=== PATIENT | male | born 1965 | race Caucasian/White ===

== ENCOUNTER 2017-10-19 04:59 | Emergency (ER) | payer MEDICARE ==
[2017-10-19 05:57] LABS: ABS Basophils 0 10^3/ul (0-0.2); ABS Eosinophils 0.1 10^3/ul (0-0.6); ABS Lymphocytes 1.3 10^3/ul (1.0-4.8); ABS Monocytes 0.4 10^3/ul (0-0.8); ABS Neutrophils 3.8 10^3/ul (1.5-7.7); ABS Nucleated RBC 0 10^3/ul; Eosinophil % 1.6 % (0-6); Hematocrit 43 % (42-52); Hemoglobin 14.8 g/dl (14.0-18.0); Lymphocyte % 22.5 % (25-47); Mean Corpuscular HGB Conc 34 g/dl (31-36); Mean Corpuscular Hemoglobin 32 pg (27-31); Mean Corpuscular Volume 92 fL (80-94); Mean Platelet Volume 8.2 um3 (7.4-10.4); Nucleated Red Blood Cells % 0; Platelet Count 170 10^3/ul (150-450); Red Blood Count 4.69 10^6/ul (4.00-5.40); Red Cell Distribution Width 14 % (10.5-15); White Blood Count 5.6 10^3/ul (3.5-10.8)
[2017-10-19 06:07] LABS: INR 1.05 (0.77-1.02)
[2017-10-19 06:16] LABS: EGFR Non-African American 68.3 (>60)
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
--- NOTE | 2017-10-19 07:51 | RAD ---
INDICATION: Chest pain COMPARISON: November 13, 2007 TECHNIQUE: An AP portable view obtained at 0515 hours is submitted. FINDINGS: Bones/Soft Tissues: There are no acute bony findings. Cardiomediastinal: The cardiac silhouette is enlarged. There is left-sided cardiac pacemaker/defibrillator. There is an additional lead projecting over the left heart.. Lungs: There are no infiltrates. Pleura: There are no pleural effusions. Other: None IMPRESSION: POSTOPERATIVE CHANGE. ENLARGED CARDIAC SILHOUETTE. LUNGS CLEAR.
[2017-10-19 09:47] VITALS: BP 122/88
--- NOTE | 2017-10-19 11:03 | ED ---
Kenia Fenton Jacob, scribed for Jermaine Reese MD on 10/19/17 at 0838 . Progress - Progress Note Progress Note: Pt was signed out by Dr. Ybarra. Re-Evaluation - Re-Evaluation 0830 Re-Evaluation Time: 08:30 Comment: Pt is feeling fine overall. First Eval Re-Evaluation Time: 09:30 Comment: Pt was instructed to resume taking eliquis until appointment w/ Dr. Quintero. Pt stated he has hx of atrial clot. Course/Dx - Course Course Of Treatment: Pt was signed out by Dr. Ybarra. At 0832, Dr. Lujan was consulted who recommended a Dr. Quintero consultation. At 0839, Dr. Quintero recommended no medication changes at this time and he will set-up a follow-up visit for device programming. He also stated Pt should be on Eliquis, though it does not appear on his home medication list. At 0900, Dr. Bustillos, the pt's dixonac operator reviewed the interrogation and stated that it was indeed a- fib, not v-fib. He agress w/ plan for follow-up w/ Dr. Quintero.Pt was instructed to resume taking eliquis until appointment w/ Dr. Quintero. Pt stated he has hx of atrial clot. In light of his recent afib episode, anti-coagulation is important. Pt was instructed to call Dr. Quintero office in the afternoon for appointment if he has not yet heard back from the office. It was also noted the pt is supposed to be taking 5 mg twice a day of eliquis. Pt was discharged to home w/ diagnosis of rapid afib and AICD discharge. - Diagnoses Provider Diagnoses: Rapid atrial fibrillation, AICD discharge - Provider Notifications Discussed Care Of Patient With: Yung Lujan Time Discussed With Above Provider: 08:32 Instructed by Provider To: Other - Recommended Dr. Quintero consultation. At 0839, Dr. Quintero recommended no medication changes at this time and he will set-up a follow-up visit for device programming. He also stated Pt should be on Eliquis, though it does not appear on his home medication list. At 0900, Dr. Bustillos, the pt's dixonac operator reviewed the interrogation and stated that it was indeed a-fib, not v-fib. He agress w/ plan for follow-up w/ Dr. Quintero. - Critical Care Time Critical Care Time: 30-74 min - CCT is EXCLUSIVE of separately billable procedures. Discharge - Sign-Out/Discharge Documenting (check all that apply): Discharge/Admit/Transfer - discharge, Receiving Sign-Out Receiving patient FROM: Ayden Tate - Discharge Plan Condition: Stable Disposition: HOME Patient Education Materials: A-fib (Atrial Fibrillation) (ED) Referrals: Francis Murillo MD [Primary Care Provider] - 2 Days Additional Instructions: Resume taking eliquis until appointment w/ Dr. Quintero. Call Dr. Quintero office in the afternoon for appointment if you have not heard from the office. Take 5 mg twice a day of eliquis. Return to ED for any changing or worsening symptoms. The documentation as recorded by the Kenia gant Jacob accurately reflects the service I personally performed and the decisions made by me, Jermaine Reese MD.
== END 2017-10-19 09:50 | disposition home or self-care (01) ==
LOC: ED 04:59
DX: I42.9 Cardiomyopathy, unspecified (principal); I51.7 Cardiomegaly; I44.0 Atrioventricular block, first degree; I44.7 Left bundle-branch block, unspecified; Z95.810 Presence of automatic (implantable) cardiac defibrillator
CPT/HCPCS: 36415; 71045; 80053; 83605; 83880; 84484; 85025; 85610; 85730; 93005; 99284

== ENCOUNTER 2019-03-16 16:16 | Emergency (ER) | payer MEDICARE ==
--- OUTSIDE RECORDS SUMMARY | 2019-03-16 16:42 | XMS REPORT | Continuity of Care Document ---
:1965 External Reference #:[id number] Author Name Jonh Quintero M.D. (transmitted by agent of provider Prudence Denson) Address [address] [place] [address] Care Team Providers Name Role Phone Francis Murillo MD - Family Care Team Information Clerical Support Specialist [phone] Medicine Problems Active Problems Provider Date Primary cardiomyopathy Jonh Quintero M.D. Onset: 07/08/2013 Paroxysmal ventricular tachycardia Jonh Quintero M.D. Onset: 07/08/2013 Social History Type Date Description Comments Sex Unknown ETOH Use Denies alcohol use Tobacco Use Start: Unknown Patient has never smoked Recreational Drug Use Denies Drug Use Smoking Status Reviewed: 02/19/19 Patient has never smoked Exercise Type/Frequency Exercises rarely hard to exercise during winter Allergies, Adverse Reactions, Alerts Active Allergies Reaction Severity Comments Date NKDA 06/26/2017 Inactive Allergies NKDA 07/08/2013 Heparin Moderate 03/28/2017 Medications Active Medications SIG Qnty Indications Ordering Provider Date Lisinopril 1 by mouth 90tabs I47.2 Jonh Quintero, 06/26/2017 10mg Tablets every day M.D. Carvedilol 1 1/2 tabs by 270tabs Valnetín Castelan, 04/09/2012 25mg Tablets mouth twice a DO FACC day Oxycodone HCL 1 tab q 6hrs Francis Murillo, 5mg prn MD Tablets Aspirin Childrens 1 tab po qd 30units Unknown 81mg Chewtabs Gabapentin 1 by mouth qHS 270caps Unknown 300mg Capsules Immunizations Description No Information Available Vital Signs Date Vital Result Comment 02/19/2019 10:14am Height 71 inches 5'11" Weight 274.00 lb with shoes Heart Rate 72 /min BP Systolic Sitting 112 mmHg Rue lg cuff BP Diastolic Sitting 72 mmHg Rue lg cuff BP Systolic Standing 118 mmHg Rue lg cuff BP Diastolic Standing 78 mmHg Rue lg cuff Respiratory Rate 15 /min BMI (Body Mass Index) 38.2 kg/m2 02/05/2019 8:02am Height 71 inches 5'11" Weight 277.00 lb with shoes Heart Rate 80 /min BP Systolic Sitting 128 mmHg Lue large cuff BP Diastolic Sitting 72 mmHg Lue large cuff BP Systolic Standing 126 mmHg Lue large cuff BP Diastolic Standing 68 mmHg Lue large cuff Respiratory Rate 13 /min BMI (Body Mass Index) 38.6 kg/m2 Ejection Fraction 30-35% ECHO 06/26/2018 Results Description No Information Available Procedures Date Code Description Status 02/19/2019 93615 EKG Tracing & Interpretation Completed 02/05/2019 56647 Interrogation Implant Cardiovasc Monitor System Incl Completed Analysis Int 02/05/2019 92242 Interrogation Implant Cardiovasc Monitor System Incl Completed Analysis Int 02/05/2019 54052 Icd Eval With Iterative Adjustmt Multiple Lead System Completed 02/05/2019 15159 Icd Eval With Iterative Adjustmt Multiple Lead System Completed Medical Devices Description No Information Available Encounters Type Date Location Provider Dx Diagnosis Office Visit 02/05/2019 [facility] Jonh Khan I47.2 Ventricular 8:15a Of Daryl Quintero M.D. tachycardia Z95.810 Presence of automatic (implantable) cardiac defibrillator I42.9 Cardiomyopathy, unspecified I48.0 Paroxysmal atrial fibrillation Assessments Date Code Description Provider 02/19/2019 I47.2 Ventricular tachycardia Jonh Quintero M.D. 02/19/2019 Z95.810 Presence of automatic (implantable) cardiac Jonh Quintero M.D. defibrillator 02/19/2019 I48.0 Paroxysmal atrial fibrillation Jonh Quintero M.D. 02/19/2019 I10 Essential (primary) hypertension Jonh Quintero M.D. 02/05/2019 I47.2 Ventricular tachycardia Jonh Quintero M.D. 02/05/2019 I47.2 Ventricular tachycardia Jonh Quintero M.D. 02/05/2019 I47.2 Ventricular tachycardia Ica Pacer Schedule 02/05/2019 Z95.810 Presence of automatic (implantable) cardiac Jonh Quintero M.D. defibrillator 02/05/2019 Z95.810 Presence of automatic (implantable) cardiac Jonh Quintero M.D. defibrillator 02/05/2019 Z95.810 Presence of automatic (implantable) cardiac Ica Pacer Schedule defibrillator 02/05/2019 I42.9 Cardiomyopathy, unspecified Jonh Quintero M.D. 02/05/2019 I42.9 Cardiomyopathy, unspecified Jonh Quintero M.D. 02/05/2019 I42.9 Cardiomyopathy, unspecified Ica Pacer Schedule 02/05/2019 I48.0 Paroxysmal atrial fibrillation Jonh Quintero M.D. Plan of Treatment Future Appointment(s):03/27/2019 9:00 am - Nurse Visit IC at [facility]03/26/2019 9:30 am - Nurse Visit IC at [facility]2018 9:00 am - Traveling ECHO 1 at [facility]02/19/2019 - Jonh Quintero M.D.I47.2 Ventricular tachycardiaFollow up:3 [id number] Presence of automatic (implantable) cardiac qzmxiorqawjemU49.0 Paroxysmal atrial fibrillationRecommendations:I will discuss treatment with Dr CarterI10 Essential (primary) hypertension Functional Status Description No Information Available Mental Status Description No Information Available Referrals Description No Information Available
--- OUTSIDE RECORDS SUMMARY | 2019-03-16 16:42 | XMS REPORT | Continuity of Care Document ---
:1965 External Reference #:[id number] Author Name Jonh Quintero M.D. (transmitted by agent of provider Prudence Denson) Address [address] [place] [address] Care Team Providers Name Role Phone Francis Murillo MD - Family Care Team Information Slag Dumper [phone] Medicine Problems Active Problems Provider Date Primary cardiomyopathy Jonh Quintero M.D. Onset: 07/08/2013 Paroxysmal ventricular tachycardia Jonh Quintero M.D. Onset: 07/08/2013 Social History Type Date Description Comments Sex Unknown ETOH Use Denies alcohol use Tobacco Use Start: Unknown Patient has never smoked Recreational Drug Use Denies Drug Use Smoking Status Reviewed: 02/05/19 Patient has never smoked Exercise Type/Frequency Exercises rarely hard to exercise during winter Allergies, Adverse Reactions, Alerts Active Allergies Reaction Severity Comments Date NKDA 06/26/2017 Inactive Allergies NKDA 07/08/2013 Heparin Moderate 03/28/2017 Medications Active Medications SIG Qnty Indications Ordering Provider Date Lisinopril 1 by mouth 90tabs I47.2 Jonh Quintero, 06/26/2017 10mg Tablets every day M.D. Carvedilol 1 1/2 tabs by 270tabs Valentín Castelan, 04/09/2012 25mg Tablets mouth twice a DO FACC day Oxycodone HCL 1 tab q 6hrs Francis Murillo, 5mg prn MD Tablets Aspirin Childrens 1 tab po qd 30units Unknown 81mg Chewtabs Gabapentin 1 by mouth qHS 270caps Unknown 300mg Capsules Immunizations Description No Information Available Vital Signs Date Vital Result Comment 02/05/2019 8:02am Height 71 inches 5'11" Weight 277.00 lb with shoes Heart Rate 80 /min BP Systolic Sitting 128 mmHg Lue large cuff BP Diastolic Sitting 72 mmHg Lue large cuff BP Systolic Standing 126 mmHg Lue large cuff BP Diastolic Standing 68 mmHg Lue large cuff Respiratory Rate 13 /min BMI (Body Mass Index) 38.6 kg/m2 Ejection Fraction 30-35% ECHO 06/26/2018 05/08/2018 8:29am Height 71 inches 5'11" Weight 270.00 lb with out shoes Heart Rate 62 /min reg with ectopy BP Systolic Sitting 106 mmHg Lue lg cuff BP Diastolic Sitting 72 mmHg Lue lg cuff BP Systolic Standing 114 mmHg Lue lg cuff BP Diastolic Standing 70 mmHg Lue lg cuff Respiratory Rate 17 /min BMI (Body Mass Index) 37.7 kg/m2 Ejection Fraction 30-35% date 08/27/17 ECHO Results Description No Information Available Procedures Date Code Description Status 02/05/2019 95616 Interrogation Implant Cardiovasc Monitor System Incl Completed Analysis Int 02/05/2019 87018 Icd Eval With Inerative Adjustmt Dual Lead System Completed 08/15/2018 79737 Interrogation Implant Cardiovasc Monitor System Incl Completed Analysis Int 08/15/2018 04834 Interrogation Implant Cardiovasc Monitor System Incl Completed Analysis Int 08/15/2018 49663 Icd Eval With Iterative Adjustmt Multiple Lead System Completed 08/15/2018 30149 Icd Eval With Iterative Adjustmt Multiple Lead System Completed Medical Devices Description No Information Available Encounters Description No Information Available Assessments Date Code Description Provider 02/05/2019 I47.2 Ventricular tachycardia Jonh Quintero M.D. 02/05/2019 I47.2 Ventricular tachycardia Ica Pacer Schedule 02/05/2019 Z95.810 Presence of automatic (implantable) cardiac Jonh Quintero M.D. defibrillator 02/05/2019 Z95.810 Presence of automatic (implantable) cardiac Ica Pacer Schedule defibrillator 02/05/2019 I42.9 Cardiomyopathy, unspecified Jonh Quintero M.D. 02/05/2019 I42.9 Cardiomyopathy, unspecified Ica Pacer Schedule 02/05/2019 I48.0 Paroxysmal atrial fibrillation Jonh Quintero M.D. 08/15/2018 I47.2 Ventricular tachycardia Jonh Quintero M.D. 08/15/2018 I47.2 Ventricular tachycardia Ica Pacer Schedule 08/15/2018 Z95.810 Presence of automatic (implantable) cardiac Jonh Quintero M.D. defibrillator 08/15/2018 Z95.810 Presence of automatic (implantable) cardiac Ica Pacer Schedule defibrillator Plan of Treatment Future Appointment(s):03/27/2019 9:00 am - Nurse Visit IC at [facility]03/26/2019 9:30 am - Nurse Visit IC at [facility]2018 9:00 am - Traveling ECHO 1 at [facility]02/05/2019 - Jonh Quintero M.D.I47.2 Ventricular tachycardiaNew Orders:Echocardiogram, Scheduled: 03/26/19Holter Monitor, Scheduled: 03/26/19Follow up:April 2019Z95.810 Presence of automatic (implantable) cardiac wyhtmtyefblvaV36.9 Cardiomyopathy, gdzeylhloeoZ12.0 Paroxysmal atrial fibrillation Functional Status Description No Information Available Mental Status Description No Information Available Referrals Description No Information Available
--- NOTE | 2019-03-16 16:51 | ED ---
HPI Cardiac - HPI Summary HPI Summary: Patient is a 53 y/o M presenting to [facility] with complaints of SOB, light- headedness, feeling near syncopal, diaphoresis, chills and nausea. He denies fever, cough, chest pain, abdominal pain, diarrhea, blood in stool, and vomiting. Patient states that Sx have been present for the past few days. He describes an episode where he was ambulating in a store and experienced sudden onset of pale-appearance, light-headedness, SOB, and diaphoresis. Patient had an increase of his Carvedilol on 02/05/19 from 1.5 mg BID to 3 mg BID. Patient has known history of PVCs. On contour stitcher, exertion is noted to aggravate SOB but lying flat is noted not to aggravate SOB. Patient states that he sleeps on two pillows, which he notes is his standard. On triage, pain is denied. Home medications and allergies are reviewed. - History of Current Complaint Chief Complaint: EDDizziness Stated Complaint: NOT FEELING WELL Time Seen by Provider: 03/16/19 16:39 Hx Obtained From: Patient Onset/Duration: Started Days Ago Timing: Lasting Days Current Severity: None - pain denied Pain Intensity: 0 Pain Scale Used: 0-10 Numeric Character: Dyspnea at Exertion Aggravating Factor(s): Exertion Alleviating Factor(s): Nothing Associated Signs and Symptoms: Positive: Shortness of Breath, Chills, Lightheadedness - feeling near syncopal, Diaphoresis, Nausea, Other: - negative - diarrhea, blood in stool. Negative: Fever, Cough, Productive Cough, Nonproductive Cough, Abdominal Pain, Vomiting - Allergy/Home Medications Allergies/Adverse Reactions: Allergies Allergy/AdvReac Type Severity Reaction Status Date / Time No Known Allergies Allergy Verified 03/16/19 16:28 Home Medications: Home Medications Aspirin 81 mg CHEW TAB* [Aspirin Low Dose TAB*] 81 mg PO DAILY 03/16/19 [ History Confirmed 03/16/19] PMH/Surg Hx/FS Hx/Imm Hx Endocrine/Hematology History: Denies: Hx Diabetes Cardiovascular History: Reports: Hx Pacemaker/ICD - 2005,2010 - Surgical History Surgery Procedure, Year, and Place: pacemaker Infectious Disease History: No Infectious Disease History: Denies: Traveled Outside the [place] in Last 30 Days - Family History Known Family History: Negative: Cardiac Disease, Hypertension, Diabetes - Social History Alcohol Use: None Substance Use Type: Reports: None Smoking Status (MU): Never Smoked Tobacco Review of Systems Positive: Chills, Skin Diaphoresis. Negative: Fever Negative: Chest Pain Positive: Shortness Of Breath. Negative: Cough Gastrointestinal: Other - negative - blood in stool Positive: Nausea. Negative: Abdominal Pain, Vomiting, Diarrhea Neurological: Other - positive - light-headedness and near syncopal sensation All Other Systems Reviewed And Are Negative: Yes Physical Exam - Summary Physical Exam Summary: VITAL SIGNS: Reviewed. GENERAL: Patient is a well-developed and obese male who is lying comfortable in the stretcher. Patient is not in any acute respiratory distress. Pale in appearance. Pacemaker in left chest noted. HEAD AND FACE: No signs of trauma. No ecchymosis, hematomas or skull depressions. No sinus tenderness. EYES: PERRLA, EOMI x 2, No injected conjunctiva, no nystagmus. Sclera are pale. EARS: Hearing grossly intact. Ear canals and tympanic membranes are within normal limits. MOUTH: Oropharynx within normal limits. NECK: Supple, trachea is midline, no adenopathy, no JVD, no carotid bruit, no c- spine tenderness, neck with full ROM. CHEST: Symmetric, no tenderness at palpation. LUNGS: Clear to auscultation bilaterally. No wheezing or crackles. CVS: Regular rate and rhythm, S1 and S2 present, no murmurs or gallops appreciated. ABDOMEN: Soft, non-tender. No signs of distention. No rebound, no guarding, and no masses palpated. Bowel sounds are normal. EXTREMITIES: FROM in all major joints, no edema, no cyanosis or clubbing. NEURO: Alert and oriented x 3. No acute neurological deficits. Speech is normal and follows commands. GCS 15. SKIN: Dry and warm. Triage Information Reviewed: Yes Vital Signs On Initial Exam: Initial Vitals Temp Pulse Resp BP Pulse Ox 98.7 F 68 16 142/89 99 03/16/19 16:26 03/16/19 16:26 03/16/19 16:26 03/16/19 16:26 03/16/19 16:26 Vital Signs Reviewed: Yes Procedures - Sedation Patient Received Moderate/Deep Sedation with Procedure: No Diagnostics - Vital Signs Vital Signs Temp Pulse Resp BP Pulse Ox 03/16/19 16:26 98.7 F 68 16 142/89 99 - Laboratory Result Diagrams: 03/16/19 17:15 03/16/19 17:15 Lab Statement: Any lab studies that have been ordered have been reviewed, and results considered in the medical decision making process. - Radiology CXR Radiology Interpretation Completed By: Radiologist Summary of Radiographic Findings: IMPRESSION: Cardiomegaly. Pacemaker leads are in place. THIS REPORT WAS REVIEWED BY DR. INFANTE. - CT BRAIN CT CT Interpretation Completed By: Radiologist Summary of CT Findings: IMPRESSION: No acute findings. THIS REPORT WAS REVIEWED BY DR. INFANTE. - EKG 1618 Cardiac Rate: Other Rate - atrial-sensed ventricular-paced complexes with rate of 76 BPM Ectopy: PVCs Summary of EKG Findings: EKG showed atrial-sensed ventricular-paced complexes with rate of 76 BPM, multiple PCVs noted. No STEMI. This EKG was reviewed and interpreted by Dr. Infante. Re-Evaluation - Re-Evaluation First Eval Re-Evaluation Time: 20:35 Change: Improved Comment: I re-evaled the patient in the ED and the patient did not have any shortness of breath. I discussed all the findings and test results with the patient. Patient was instructed to return to the emergency room immediately if any of the symptoms return worsens. Plan of care was discussed with the patient and understands and agrees. All questions were answered at patient satisfaction. There were no further complaints or concerns. Lung exam before discharge: CTA B/L. Good air exchange. No wheezing or crackles heard. CVS: S1 and S2 present. No murmurs appreciated. Patient is alert and oriented x 3. Patient is hemodynamically stable. Patient will be discharged home with follow up PCP in the next 2-3 days Disposition - Course Assessment/Plan: This patient is a 53-year-old male who presents to the emergency department with a chief complaint of dizziness and shortness of breath. Blood work without any significant abnormality except for BUN of 32 creatinine 1.25, glucose 111, BNP 197. CXR impression: Cardiomegaly. Pacemaker leads are in place. D-dimer is 239 which is very low. Troponin is 0.01. In the ED course the patient was remaining stable. Head CT impression: No acute intracranial pathology. Wells criteria for PE is 0. PERC criteria for PE is only 1. Therefore, no significant risk for PE. Overall the workup has been negative. Patients symptoms have subsided and the patient is asymptomatic. I later re-evaled the patient in the ED and the patient did not have any shortness of breath. Second troponin is also 0.01. I discussed all the findings and test results with the patient. Patient was instructed to return to the emergency room immediately if any of the symptoms return worsens. Plan of care was discussed with the patient and understands and agrees. All questions were answered at patient satisfaction. There were no further complaints or concerns. Lung exam before discharge: CTA B/L. Good air exchange. No wheezing or crackles heard. CVS: S1 and S2 present. No murmurs appreciated. Patient is alert and oriented x 3. Patient is hemodynamically stable. Patient will be discharged home with follow up PCP in the next 2-3 days - Differential Dx - Cardiopulmonary Differential Diagnoses - Cardiopulmonary: Atrial Fibrillation, CAD, CHF, Exacerbation Of COPD, Lower Resp Infection, Myocardial Infarction, Paroxysmal SVT, Pulmonary Edema, Pulmonary Embolism - Diagnoses Provider Diagnoses: Dizziness, Dyspnea Discharge ED - Sign-Out/Discharge Documenting (check all that apply): Patient Departure - discharge - Discharge Plan Condition: Stable Disposition: HOME Patient Education Materials: Dizziness (ED) Referrals: Francis Murillo MD [Primary Care Provider] - 3 Days Additional Instructions: PLEASE RETURN TO ED FOR ANY NEW OR WORSENING SYMPTOMS. PLEASE FOLLOW UP WITH YOUR PRIMARY CARE PHYSICIAN WITHIN THREE DAYS. - Billing Disposition and Condition Condition: STABLE Disposition: Home - Attestation Statements Document Initiated by Jaxson: Yes Documenting Scribe: CHRISTIANA LIAO Provider For Whom Jaxson is Documenting (Include Credential): CAROLANN INFANTE MD Scribe Attestation: CHRISTIANA Fenton, scribed for CAROLANN INFANTE MD on 03/17/19 at 1245. Scribe Documentation Reviewed: Yes Provider Attestation: The documentation as recorded by the CHRISTIANA gant accurately reflects the service I personally performed and the decisions made by CAROLANN alvarado MD Status of Scribe Document: Viewed
[2019-03-16 17:21] LABS: ABS Basophils 0.1 10^3/ul (0-0.2); ABS Eosinophils 0.1 10^3/ul (0-0.6); ABS Lymphocytes 1.4 10^3/ul (1.0-4.8); ABS Monocytes 0.5 10^3/ul (0-0.8); ABS Neutrophils 4.6 10^3/ul (1.5-7.7); Eosinophil % 1.9 %; Hematocrit 43 % (42-52); Hemoglobin 14.4 g/dL (14.0-18.0); Lymphocyte % 21.1 %; Mean Corpuscular HGB Conc 34 g/dL (31-36); Mean Corpuscular Hemoglobin 31 pg (27-31); Mean Corpuscular Volume 92 fL (80-94); Nucleated Red Blood Cells % 0.1; Platelet Count 174 10^3/uL (150-450); Red Blood Count 4.62 10^6 /uL (4.18-5.48); Red Cell Distribution Width 14 % (10-15); White Blood Count 6.7 10^3/uL (3.5-10.8)
[2019-03-16 17:28] LABS: Activated Partial Thrombo Time 29.9 seconds (26.0-38.0); INR 1.08 (0.82-1.09)
[2019-03-16 17:35] LABS: Albumin 3.8 g/dL (3.2-5.2); Calcium 9.1 mg/dL (8.6-10.3); Potassium 4.2 mmol/L (3.5-5.0); Total Bilirubin 0.4 mg/dL (0.2-1.0)
[2019-03-16 17:41] LABS: Albumin/Globulin Ratio 1.3 (1-3); BUN/Creatinine Ratio 25.6 (8-20); C Reactive Protein 1.76 mg/L (<8.01); EGFR African American 72.6 (>60); Total Protein 6.8 g/dL (6.4-8.9); Troponin I 0.01 ng/mL (<0.03)
[2019-03-16 17:43] LABS: CKMB ng/mL 1.9 ng/mL (0.6-6.3)
[2019-03-16 20:59] VITALS: BP 108/72
== END 2019-03-16 20:58 | disposition home or self-care (01) ==
LOC: ED 16:16
DX: R06.00 Dyspnea, unspecified (principal); R42 Dizziness and giddiness; I49.3 Ventricular premature depolarization; Z79.82 Long term (current) use of aspirin; Z79.899 Other long term (current) drug therapy; Z95.0 Presence of cardiac pacemaker
CPT/HCPCS: 36415; 70450; 71046; 80053; 82550; 82553; 83605; 83880; 84484; 85025; 85379; 85610; 85730; 86140; 86850; 86900; 86901; 93005; 99283

== ENCOUNTER 2023-04-06 09:02 | Observation (INO) ==
[2023-04-06] MEDS ORDERED: NS 0.9% 1000 ml BAG 1,000 ML IV ONE (09:05)
[2023-04-06 09:25] LABS: ABS Basophils 0.1 10^3/uL (0.0-0.1); ABS Eosinophils 0.1 10^3/uL (0.0-0.5); ABS Monocytes 0.4 10^3/uL (0.0-1.1); ABS Neutrophils 5.7 10^3/uL (1.5-7.6); ABS Nucleated RBC 0.01 10^3/ul; Eosinophil % 1.5 %; Hematocrit 41.1 % (38-53); Hemoglobin 13.9 g/dL (13.2-16.3); Lymphocyte % 13.4 %; Mean Corpuscular Hemoglobin 31.4 pg (27-33); Mean Corpuscular Hgb Conc 33.8 g/dL (31-36); Mean Platelet Volume 7.8 fL (7.5-11.2); Nucleated Red Blood Cells % 0.1 %/100WBC (0.0-0.8); Platelet Count 224 10^3/uL (150-450); Red Blood Count 4.42 10^6/uL (4.06-5.63); White Blood Count 7.3 10^3/uL (3.6-10.2)
[2023-04-06 09:34] LABS: INR 1.56 (0.83-1.13)
[2023-04-06 09:47] LABS: Albumin/Globulin Ratio 1.5 (1-3); C Reactive Protein 8.87 mg/L (<8.01); Creatinine, Serum 1.22 mg/dL (0.67-1.17); Globulin 2.7 g/dL (2-4); Phosphorus 3.4 mg/dL (2.5-5.0); Potassium 4.8 mmol/L (3.5-5.0); Total Bilirubin 0.8 mg/dL (0.2-1.0); Total Protein 6.7 g/dL (6.4-8.9); eGFR CKD-EPI 68.3 (>60)
[2023-04-06 10:48] LABS: High Sensitivity Troponin 1 Hr 3 pg/mL (<20)
[2023-04-06] MEDS ORDERED: Morphine 4 MG/ML VIAL (1 ml) IV ONE (14:18)
[2023-04-06 14:47] LABS: Urine Appearance Cloudy; Urine Bilirubin Negative (Negative); Urine Blood Negative (Negative); Urine Color Straw; Urine Glucose Negative (Negative); Urine Ketones Negative (Negative); Urine Nitrite Negative (Negative); Urine Protein Negative (Negative); Urine Specific Gravity 1.005 (1.002-1.030); Urine Urobilinogen Negative (Negative)
[2023-04-06] MEDS ORDERED: Polyethylene Glycol 3350 17 GM PACKET PO PRN (16:14)
[2023-04-06] MEDS ORDERED: Senna TAB 8.6 mg TAB PO PRN (16:14)
[2023-04-06] MEDS ORDERED: Magnesium Hydroxide LIQ 30 ML UDC PO PRN (18:11)
[2023-04-06] MEDS ORDERED: Magnesium Hydroxide LIQ 30 ML UDC PO SCH (21:00)
[2023-04-07 03:06] LABS: Albumin 3.7 g/dL (3.2-5.2); Albumin/Globulin Ratio 1.4 (1-3); Creatinine, Serum 1.05 mg/dL (0.67-1.17); Globulin 2.6 g/dL (2-4); Magnesium 1.8 mg/dL (1.9-2.7); Potassium 3.9 mmol/L (3.5-5.0); Total Protein 6.3 g/dL (6.4-8.9); eGFR CKD-EPI 81.8 (>60)
[2023-04-07 04:05] LABS: TSH Ultra Thyroid Stim Horm 0.81 mcIU/mL (0.34-5.60)
[2023-04-07] MEDS ORDERED: Magnesium Sulfate IV 1GM/100ML 1 GM/100 ML BAG IV ONE (07:30)
[2023-04-07 20:39] VITALS: BP 115/74
== END 2023-04-07 20:45 | disposition short-term general hospital (02) ==
LOC: EDHOLD 09:02 → ED 09:02 → MEDTELE 18:28 → ICU 20:26
PROVIDERS: ADMIT Internal Medicine; ATTEND Internal Medicine

== ENCOUNTER 2023-08-04 22:58 | Observation (INO) ==
[2023-08-05 00:30] LABS: ABS Basophils 0.1 10^3/uL (0.0-0.1); ABS Eosinophils 0.1 10^3/uL (0.0-0.5); ABS Lymphocytes 1.1 10^3/uL (1.0-4.8); ABS Monocytes 0.5 10^3/uL (0.0-1.1); ABS Neutrophils 5.7 10^3/uL (1.5-7.6); Eosinophil % 1.6 %; Hematocrit 38.6 % (38-53); Hemoglobin 13.3 g/dL (13.2-16.3); Mean Corpuscular Hemoglobin 31.8 pg (27-33); Mean Corpuscular Hgb Conc 34.3 g/dL (31-36); Mean Corpuscular Volume 92.5 fL (80-97); Mean Platelet Volume 7.8 fL (7.5-11.2); Nucleated Red Blood Cells % 0.1 %/100WBC (0.0-0.8); Platelet Count 194 10^3/uL (150-450); Red Blood Count 4.18 10^6/uL (4.06-5.63); Red Cell Distribution Width 14.4 % (12-17); White Blood Count 7.5 10^3/uL (3.6-10.2)
[2023-08-05 00:31] LABS: INR 1.33 (0.83-1.13)
[2023-08-05 01:38] LABS: Albumin 3.8 g/dL (3.2-5.2); Albumin/Globulin Ratio 1.3 (1-3); Calcium 8.8 mg/dL (8.6-10.3); Creatinine, Serum 1.25 mg/dL (0.67-1.17); Globulin 2.9 g/dL (2-4); Potassium 4.4 mmol/L (3.5-5.0); Total Bilirubin 0.5 mg/dL (0.2-1.0); Total Protein 6.7 g/dL (6.4-8.9); eGFR CKD-EPI 65.9 (>60)
[2023-08-05] MEDS: Iohexol 350 (CONTRAST) 500 ML MDV IV ONE (01:48)
[2023-08-05 02:47] LABS: High Sensitivity Troponin 1 Hr 16 pg/mL (<20)
[2023-08-05 03:40] LABS: C Reactive Protein 4.3 mg/L (<8.01)
[2023-08-05 04:00] LABS: High Sensitivity Troponin 3 Hr 18 pg/mL (<20)
[2023-08-05] MEDS: Cefepime 1 GM in Dextrose 1 GM/50 ML BAG IV ONE (04:53)
[2023-08-05] MEDS ORDERED: Vancomycin 2,000 MG in NS 0.9% 250 ml 250 ML IVPB SCH (05:00)
[2023-08-05] MEDS ORDERED: Ondansetron 4 mg VIAL 2 MG/ML 2 ml VIAL IV PRN (05:28)
[2023-08-05] MEDS: Vancomycin 1,750 MG in NS 0.9% 500 ml BAG 500 ML IVPB ONE (06:15)
[2023-08-05] MEDS ORDERED: Naloxone 0.4 mg VIAL 0.4 mg/ml 1 ml VIAL SUBCUT PRN (06:31)
[2023-08-05] MEDS ORDERED: Vancomycin per Pharmacy 1 EA NOTE FOLLOW UP SCH (07:00)
[2023-08-05] MEDS: DOXYcycline 100 MG in NS 0.9% 250 ml 250 ML IVPB SCH (07:45)
[2023-08-05] MEDS: Cefepime 1 GM in Dextrose 1 GM/50 ML BAG IV SCH (18:33)
[2023-08-05] MEDS: Bacitracin OINTMENT TUBE TOPICAL SCH (21:39)
[2023-08-06 06:27] LABS: Hematocrit 38.4 % (38-53); Hemoglobin 13.1 g/dL (13.2-16.3); Mean Corpuscular Hemoglobin 31.7 pg (27-33); Mean Corpuscular Volume 93.4 fL (80-97); Mean Platelet Volume 7.7 fL (7.5-11.2); Platelet Count 164 10^3/uL (150-450); Red Blood Count 4.11 10^6/uL (4.06-5.63); Red Cell Distribution Width 14.4 % (12-17); White Blood Count 5.8 10^3/uL (3.6-10.2)
[2023-08-06 06:32] LABS: ABS Basophils 0.1 10^3/uL (0.0-0.1); ABS Eosinophils 0.1 10^3/uL (0.0-0.5); ABS Monocytes 0.4 10^3/uL (0.0-1.1); ABS Neutrophils 4.1 10^3/uL (1.5-7.6); ABS Nucleated RBC 0.01 10^3/ul; Eosinophil % 1.6 %; Lymphocyte % 18.3 %; Nucleated Red Blood Cells % 0.1 %/100WBC (0.0-0.8)
[2023-08-06 06:40] LABS: Albumin 3.5 g/dL (3.2-5.2); Albumin/Globulin Ratio 1.3 (1-3); C Reactive Protein 5.34 mg/L (<8.01); Calcium 8.5 mg/dL (8.6-10.3); Creatinine, Serum 1.22 mg/dL (0.67-1.17); Globulin 2.6 g/dL (2-4); Potassium 4.4 mmol/L (3.5-5.0); Total Bilirubin 0.8 mg/dL (0.2-1.0); Total Protein 6.1 g/dL (6.4-8.9); eGFR CKD-EPI 67.9 (>60)
[2023-08-06 11:02] VITALS: BP 111/80
== END 2023-08-06 17:25 | disposition left against medical advice (07) ==
LOC: EDHOLD 22:58 → ED 22:58 → SUATTDRO 08-05 05:28 → MEDTELE 08-05 14:45
PROVIDERS: ADMIT Hospitalist; ATTEND Hospitalist